=== PATIENT | female | born 1960 | race Caucasian/White ===

== ENCOUNTER 2021-05-11 22:13 | Emergency (ER) | payer OTHER, MEDICAID, SELFPAY ==
[2021-05-11 23:08] VITALS: BP 124/53; PULSE 68; RESP 18; TEMP 36.6; O2SAT 100; BMI 19.5
[2021-05-11 23:48] VITALS: BP 112/51; PULSE 65; RESP 20; O2SAT 99
[2021-05-12] VITALS (8 sets, daily range): BP systolic 87–100; BP diastolic 40–51; PULSE 55–60; RESP 12–30; O2SAT 98–100
--- NOTE | 2021-05-12 03:22 | ED.OVERDOSE ---
HPI - Overdose General Chief Complaint: Toxicology Problem Stated Complaint: TIRED NAUSEA Time Seen by Provider: 05/11/21 23:41 Source: patient Mode of arrival: Wheelchair Limitations: no limitations History of Present Illness HPI Narrative: 60-year-old woman with a history of seizure disorder, paroxysmal atrial fibrillation presents this evening after taking a 2nd dose of her nighttime medications by accident. The extra dose is 500 mg of Depakote, 100 mg of Vimpat and 1.5 mg of clonazepam. She called her neurologist who suggested that she come to the emergency room for observation and further evaluation. She has no complaints otherwise. Related Data Allergies Allergy/AdvReac Type Severity Reaction Status Date / Time No Known Drug Allergies Allergy Verified 05/11/21 23:08 Review of Systems Review of Systems Narrative: Pertinent positive and negative findings as per HPI Remainder of review of systems is otherwise unremarkable for Constitutional: Fevers, chills, weakness ENT: No sore throat, neck pain, ear pain CV: Chest pain, palpitations, Respiratory: Cough, wheeze, dyspnea GI: Nausea, vomiting, diarrhea, : Dysuria, hematuria, Patient History Social History Smoking Status: Never smoker Smoking Status: Never smoker Substance Use Type: does not use Exam Narrative Exam Narrative: General: Frail, chronically ill-appearing, somewhat sleepy but Able to give a complete and coherent history. HEENT: Moist mucous membranes, normal sclera with reactive pupils, Respiratory: Lungs are clear to auscultation, no wheezing no rales no rhonchi. Full and symmetrical air movement Cardiac: Regular rate and rhythm no murmurs no bruits Abdomen: Soft, nontender, good bowel tones, no flank pain Skin: Warm and dry, no rashes Neurologic: Grossly neurologically intact with no obvious asymmetries or abnormalities Extremities: No trauma, well perfused Psych: Cooperative, drowsy, appropriate insight and affect Initial Vital Signs Initial Vital Signs: Vital Signs Temperature 97.9 F 05/11/21 23:08 Pulse Rate 68 05/11/21 23:08 Respiratory Rate 18 05/11/21 23:08 Blood Pressure 124/53 L 05/11/21 23:08 Pulse Oximetry 100 05/11/21 23:08 Course Vital Signs Vital signs: Vital Signs - 8 hr 05/11/21 23:08 05/11/21 23:48 05/12/21 00:00 Temperature 97.9 F Pulse Rate 68 65 60 Respiratory Rate 18 20 30 H Blood Pressure 124/53 L 112/51 L 100/46 L Pulse Oximetry 100 99 99 05/12/21 00:30 05/12/21 00:32 05/12/21 01:00 Temperature Pulse Rate 58 L 56 L 59 L Respiratory Rate 19 20 19 Blood Pressure 87/40 L 93/46 L Pulse Oximetry 99 98 98 05/12/21 01:01 05/12/21 01:30 05/12/21 02:00 Temperature Pulse Rate 55 L 56 L 57 L Respiratory Rate 21 16 12 Blood Pressure 93/51 L 87/51 L 98/46 L Pulse Oximetry 99 98 100 05/12/21 02:30 Temperature Pulse Rate 59 L Respiratory Rate 23 Blood Pressure 87/40 L Pulse Oximetry 99 MDM - Overdose ECG Data Interpretation: Sinus rhythm with occasional PAC Rate of 67 QT is 384 milliseconds No acute ischemic changes MDM Narrative Medical decision making narrative: 60-year-old woman who inadvertently took a 2nd dose of all of her evening seizure medications and an additional dose of clonazepam 1.5mg. She was observed in the emergency department for 6 hours and is more alert with her blood pressure trending up. She states that she typically has chronically low blood pressure. New no acute EKG changes and no prolonged QT QTC intervals. Patient is safe for home discharge. Did suggest that she consider buying a pill dispenser kit that clearly shows which medications have been taken and which are still pending to take. There is no evidence of self-harm or intentional overdose with lucina's presentation. Discharge Plan Departure Patient Disposition: Home Clinical Impression: Accidental drug overdose Qualifiers: Encounter type: initial encounter Qualified Code(s): T50.901A - Poisoning by unspecified drugs, medicaments and biological substances, accidental (unintentional), initial encounter Activity Restrictions/Additional Instructions: Thank you for coming in today. With the extra dose of all of your evening seizure medications you are observed in the emergency department for 6 hours. Your oxygen levels mid remained reassuring. Your blood pressure did fall slightly but is beginning to come back up nicely. Your EKG does not show any arrhythmias widening of the electrical complexes. It is safe for you to go home at this time. It might be appropriate to think about putting your medications into a daily dispenser so it is obvious when you have taken them and when you have not to avoid accidentally taking 2nd doses or accidentally missing doses. I wish you the best
== END 2021-05-12 03:58 | disposition home or self-care (01) ==
PROVIDERS: Emergency Provider Emergency Medicine
DX: T42.6X1A Poisoning by other antiepileptic and sedative-hypnotic drugs, accidental (unintentional), initial encounter (principal); R03.1 Nonspecific low blood-pressure reading
CPT/HCPCS: 93005; 93010; 99283

== ENCOUNTER → 2021-07-19 16:11 | Outpatient (CLI) | payer OTHER, MEDICAID, SELFPAY ==
[2021-07-20 05:41] LABS: Valproic Acid (Depakene) Total 109 ug/mL (50-100)
[2021-07-24 14:42] LABS: Lacosamide 7.1 ug/mL (5.0-10.0)
== END ==
PROVIDERS: Referring Provider Psychiatry & Neurology Neurology; Visit Provider Psychiatry & Neurology Neurology
DX: G40.909 Epilepsy, unspecified, not intractable, without status epilepticus (principal); Z79.899 Other long term (current) drug therapy
CPT/HCPCS: 36415; 80164; 80235

== ENCOUNTER → 2022-08-26 16:23 | Outpatient (CLI) | payer OTHER, MEDICAID, SELFPAY ==
[2022-08-27 23:30] LABS: Valproic Acid (Depakene) Total 64 ug/mL (50-100)
== END ==
PROVIDERS: Referring Provider Psychiatry & Neurology Neurology; Visit Provider Psychiatry & Neurology Neurology
DX: G40.804 Other epilepsy, intractable, without status epilepticus (principal)
CPT/HCPCS: 36415; 80164

== ENCOUNTER 2023-01-03 09:03 | Emergency (ER) | payer OTHER, MEDICAID, SELFPAY ==
[2023-01-03] VITALS (23 sets, daily range): BP systolic 100–120; BP diastolic 49–77; PULSE 58–91; RESP 4–29; TEMP 36.7; O2SAT 93–100; BMI 20.3
--- NOTE | 2023-01-03 09:09 | DI.CT.S_ITS ---
PROCEDURE: CT HEAD/BRAIN WO CON INDICATIONS: change in seizure pattern TECHNIQUE: Noncontrast 4.5 mm thick angled axial sections acquired from the foramen magnum to the vertex, with coronal and sagittal reformats. For radiation dose reduction, the following was used: automated exposure control, adjustment of mA and/or kV according to patient size. COMPARISON: None. FINDINGS: Image quality: Excellent. CSF spaces: Basal cisterns are patent. No extra-axial fluid collections. The ventricles are symmetric in size and shape. Brain: No intracranial bleeds or masses. There is cerebral volume loss for age, with resultant ventricular and sulcal prominence. There are periventricular and deep white matter chronic small vessel ischemic changes. There is intracranial internal carotid artery atherosclerosis. Skull and face: Calvarium and visualized facial bones appear intact, without suspicious lesions. Sinuses: There is a mucous retention cyst or polyp in the left maxillary sinus. The mastoids are clear. IMPRESSION: 1. No acute intracranial abnormalities. 2. Cerebral volume loss and chronic microvascular ischemic changes. 3. A mucous retention cyst or polyp in the left maxillary sinus. Dictated by: Yeison Arredondo M.D. on 01/03/2023 at 10:26 Approved by: Yeison Arredondo M.D. on 01/03/2023 at 10:27
--- NOTE | 2023-01-03 09:11 | ED_ITS ---
HPI - General Adult General Chief complaint: Seizure Stated complaint: seizures 4 in a 24 hour period Time Seen by Provider: 01/03/23 09:09 History of Present Illness HPI narrative: 62-year-old female nonsmoker with history of atrial fibrillation and seizure disorder on Keppra presents with her in the chief complaint of 4 seizures in the past 24 hours. She had been in her normal state of health and has been taking her medications as directed without any changes in the dosing. She is had no recent trauma, no fevers vomiting or diarrhea. No chest pain, cough or shortness of breath. has witnessed seizures and states that they are grand mal and last approximately 1 minute with a relatively typical postictal phase in the aftermath. The most recent was just prior to her arrival, again lasting about 1 minute, she did not injure herself, did not bite her tongue but did lose control of her bladder. She did not get her morning dose of Keppra today but this is the only dose that she has missed. She had gone 7 or 8 months without a seizure until she had 1 about 1 week ago and then for seizures in the past 24 hours as noted. Related Data Allergies Allergy/AdvReac Type Severity Reaction Status Date / Time No Known Drug Allergies Allergy Verified 05/11/21 23:08 Review of Systems Review of Systems Narrative: GENERAL: Denies chills, fatigue, malaise, fever, sweats. HEENT: Denies sinus pain, ear pain, sore throat, difficulty swallowing, dizziness. RESPIRATORY: Denies dyspnea, cough, wheezing, hemoptysis, sputum. CARDIOVASCULAR: Denies chest pain, palpitations, orthopnea, edema, GASTROINTESTINAL: Denies nausea, vomiting, abdominal pain, diarrhea, constipation, melena. : Denies dysuria, frequency, incontinence, hematuria, urinary retention. MUSCULOSKELETAL: denies weakness, joint pain, or bony pain SKIN: Denies rash, skin lesions, or other NEUROLOGIC: See HPI PSYCHIATRIC: No concerning psychosocial issues. 12 point review of systems is negative except for those stated above Patient History Social History Smoking Status: Never smoker Smoking Status: Never smoker Substance Use Type: does not use Exam Narrative Exam Narrative: GENERAL: [62] year old patient appears stated age. Well-developed patient, in mild distress. GCS 14, slightly confused HEAD: Atraumatic. Normocephalic. EYES: Pupils equal round and reactive. Extraocular motions intact. No scleral icterus. No injection or drainage. ENT: Nose without bleeding, purulent drainage. Throat without erythema, tonsillar hypertrophy or exudate. Airway patent. NECK: Trachea midline. Non tender CARDIOVASCULAR: Regular rate and rhythm without murmurs, gallops, or rubs. RESPIRATORY: Clear to auscultation. Breath sounds equal bilaterally. No wheezes, rales, or rhonchi. GASTROINTESTINAL: Abdomen soft, non-tender, nondistended. Incontinent of urine EXTREMITIES: No edema or joint tenderness. BACK: Nontender without deformity or crepitance. No flank tenderness. NEURO: AOx3. SKIN: No rash or erythema of visible areas Initial Vital Signs Initial Vital Signs: Vital Signs Pulse Oximetry 93 01/03/23 09:13 Course Orders Ordered: ED Orders 01/03/23 09:09 CT head/brain wo con Stat 01/03/23 09:43 Complete Blood Count AUTO DIFF Stat Comprehensive Metabolic Panel Stat Ethanol (ETOH) Stat Lactate (Lactic Acid) Stat Levetiracetam Keppra Stat Magnesium Stat Prolactin Stat 01/03/23 10:47 Urine Drug Screen, Rapid Stat Urine Microscopic Stat Discontinued Medications Sodium Chloride (Normal Saline 0.9%) 1,000 mls @ 1,000 mls/hr IV BOLUS ONE Stop: 01/03/23 10:08 Last Infusion: 01/03/23 10:59 Dose: 500 mls/hr Documented By: Infusion: 01/03/23 10:00 Dose: 0 mls/hr Documented By: Infusion: 01/03/23 09:53 Dose: 1,000 mls/hr Documented By: Infusion: 01/03/23 09:19 Dose: 0 mls/hr Documented By: Admin: 01/03/23 09:19 Dose: 1,000 mls/hr Documented By: KAIT Levetiracetam 1,000 mg/ Sodium (Chloride) 110 mls @ 440 mls/hr IV NOW ONE Stop: 01/03/23 09:10 Last Infusion: 01/03/23 10:10 Dose: 0 mls/hr Documented By: Infusion: 01/03/23 09:52 Dose: 440 mls/hr Documented By: Infusion: 01/03/23 09:20 Dose: 0 mls/hr Documented By: Admin: 01/03/23 09:20 Dose: 440 mls/hr Documented By: RLS Consultations Consultation #1: discussed with Neurology, they have reviewed the case. Given no abnormal findings. No change in meds. OK for DC and follow up Vital Signs Vital signs: Vital Signs - 8 hr 01/03/23 09:15 01/03/23 09:13 01/03/23 09:14 Temperature 98.1 F Pulse Rate 91 H Respiratory Rate 16 Blood Pressure 119/53 L 119/53 L Pulse Oximetry 97 93 Oxygen Delivery Method Room Air 01/03/23 09:14 01/03/23 09:15 01/03/23 09:30 Temperature Pulse Rate 79 71 Respiratory Rate 15 26 H Blood Pressure Pulse Oximetry 99 99 Oxygen Delivery Method 01/03/23 09:45 01/03/23 10:00 01/03/23 10:30 Temperature Pulse Rate 69 65 71 Respiratory Rate 29 H 21 26 H Blood Pressure Pulse Oximetry 100 99 Oxygen Delivery Method 01/03/23 10:45 01/03/23 10:50 01/03/23 10:50 Temperature Pulse Rate 65 66 Respiratory Rate 23 25 H Blood Pressure 108/50 L Pulse Oximetry 100 Oxygen Delivery Method 01/03/23 11:00 01/03/23 11:00 01/03/23 11:15 Temperature Pulse Rate 67 66 Respiratory Rate 26 H 22 Blood Pressure 100/51 L Pulse Oximetry 100 100 Oxygen Delivery Method 01/03/23 11:30 01/03/23 11:30 01/03/23 11:37 Temperature Pulse Rate 66 Respiratory Rate 14 Blood Pressure 101/49 L 105/51 L Pulse Oximetry 100 Oxygen Delivery Method 01/03/23 11:37 Temperature Pulse Rate 76 Respiratory Rate 19 Blood Pressure Pulse Oximetry 100 Oxygen Delivery Method Medical Decision Making Lab Data 01/03/23 09:43 01/03/23 09:43 Labs: Lab Results 01/03/23 01/03/23 01/03/23 Range/Units 09:43 09:43 09:43 WBC 5.2 (4.5-11.0) X10^3/uL RBC 4.01 (4.0-5.2) X10^6/uL Hgb 12.4 (12.0-16.0) g/dL Hct 36.4 (36-46) % MCV 90.9 (80-100) fL MCH 31.0 (26-34) PG MCHC 34.1 (30-36) % RDW 13.0 (11.6-14.8) % Plt Count 242 (150-400) X10^3/uL Neut % (Auto) 55.2 (50-75) % Lymph % (Auto) 32.0 (25-40) % [place] % (Auto) 9.9 (3-14) % Eos % (Auto) 1.9 L (2-4) % Baso % (Auto) 1.0 (0-2) % Neut # (Auto) 2900 (1386-9013) /uL Lymph # (Auto) 1700 (7144-1185) /uL [place] # (Auto) 500 (0-900) /uL Eos # (Auto) 100 (0-450) /uL Baso # (Auto) 100 (0-100) /uL Sodium 131 L (137-145) mmol/L Potassium 4.3 (3.4-5.1) mmol/L Chloride 98 (98-107) mmol/L Carbon Dioxide 23 (22-32) mmol/L BUN 9 (7-17) mg/dL Creatinine 0.50 L (0.52-1.04) mg/dL Estimated GFR > 60 (>60) mL/min BUN/Creatinine Ratio 18.0 (6-22) Glucose 85 (80-110) mg/dL Lactate (0.7-2.1) mmol/L Calcium 9.0 (8.4-10.2) mg/dL Magnesium 1.9 (1.6-2.3) mg/dL Total Bilirubin 1.3 (0.2-1.3) mg/dL AST 37 H (14-36) IU/L ALT 21 (<35) IU/L Alkaline Phosphatase 46 (38-126) U/L Total Protein 8.1 (6.3-8.2) g/dL Albumin 4.2 (3.5-5.0) g/dL Globulin 3.9 (1.7-4.1) g/dL Albumin/Globulin Ratio 1.1 (1.0-2.8) Prolactin 53.8 H (3.0-18.6) ng/mL Urine RBC (0-5/HPF) Urine WBC (0-5/HPF) Ur Squamous Epith Cells (0-5/HPF) Urine Bacteria (None) Ur Culture Indicated? U Opiates 300ng/mL cut (Negative) Ur Oxycodone Screen (Negative) Urine Methadone Screen (Negative) Ur Barbiturates Screen (Negative) U Tricyclic Antidepress (Negative) Ur Phencyclidine Scrn (Negative) Ur Amphetamines Screen (Negative) U Methamphetamines Scrn (Negative) Ur MDMA Scrn (Ecstasy) (Negative) U Benzodiazepines Scrn (Negative) Urine Cocaine Screen (Negative) U Marijuana (THC) Screen (Negative) Ethyl Alcohol < 10 ( - 10) mg/dL 01/03/23 01/03/23 01/03/23 Range/Units 09:43 10:47 10:47 WBC (4.5-11.0) X10^3/uL RBC (4.0-5.2) X10^6/uL Hgb (12.0-16.0) g/dL Hct (36-46) % MCV (80-100) fL MCH (26-34) PG MCHC (30-36) % RDW (11.6-14.8) % Plt Count (150-400) X10^3/uL Neut % (Auto) (50-75) % Lymph % (Auto) (25-40) % [place] % (Auto) (3-14) % Eos % (Auto) (2-4) % Baso % (Auto) (0-2) % Neut # (Auto) (4472-5527) /uL Lymph # (Auto) (2806-7472) /uL [place] # (Auto) (0-900) /uL Eos # (Auto) (0-450) /uL Baso # (Auto) (0-100) /uL Sodium (137-145) mmol/L Potassium (3.4-5.1) mmol/L Chloride (98-107) mmol/L Carbon Dioxide (22-32) mmol/L BUN (7-17) mg/dL Creatinine (0.52-1.04) mg/dL Estimated GFR (>60) mL/min BUN/Creatinine Ratio (6-22) Glucose (80-110) mg/dL Lactate 2.6 H (0.7-2.1) mmol/L Calcium (8.4-10.2) mg/dL Magnesium (1.6-2.3) mg/dL Total Bilirubin (0.2-1.3) mg/dL AST (14-36) IU/L ALT (<35) IU/L Alkaline Phosphatase (38-126) U/L Total Protein (6.3-8.2) g/dL Albumin (3.5-5.0) g/dL Globulin (1.7-4.1) g/dL Albumin/Globulin Ratio (1.0-2.8) Prolactin (3.0-18.6) ng/mL Urine RBC 1-5/hpf (0-5/HPF) Urine WBC 1-5/hpf (0-5/HPF) Ur Squamous Epith Cells 1-5 /hpf (0-5/HPF) Urine Bacteria Moderate (10-30) H (None) Ur Culture Indicated? Cult not indicated U Opiates 300ng/mL cut Negative (Negative) Ur Oxycodone Screen Negative (Negative) Urine Methadone Screen Negative (Negative) Ur Barbiturates Screen Negative (Negative) U Tricyclic Antidepress Negative (Negative) Ur Phencyclidine Scrn Negative (Negative) Ur Amphetamines Screen Negative (Negative) U Methamphetamines Scrn Negative (Negative) Ur MDMA Scrn (Ecstasy) Negative (Negative) U Benzodiazepines Scrn Negative (Negative) Urine Cocaine Screen Negative (Negative) U Marijuana (THC) Screen Negative (Negative) Ethyl Alcohol ( - 10) mg/dL 01/03/23 Range/Units 12:00 WBC (4.5-11.0) X10^3/uL RBC (4.0-5.2) X10^6/uL Hgb (12.0-16.0) g/dL Hct (36-46) % MCV (80-100) fL MCH (26-34) PG MCHC (30-36) % RDW (11.6-14.8) % Plt Count (150-400) X10^3/uL Neut % (Auto) (50-75) % Lymph % (Auto) (25-40) % [place] % (Auto) (3-14) % Eos % (Auto) (2-4) % Baso % (Auto) (0-2) % Neut # (Auto) (9294-7969) /uL Lymph # (Auto) (0329-3882) /uL [place] # (Auto) (0-900) /uL Eos # (Auto) (0-450) /uL Baso # (Auto) (0-100) /uL Sodium (137-145) mmol/L Potassium (3.4-5.1) mmol/L Chloride (98-107) mmol/L Carbon Dioxide (22-32) mmol/L BUN (7-17) mg/dL Creatinine (0.52-1.04) mg/dL Estimated GFR (>60) mL/min BUN/Creatinine Ratio (6-22) Glucose (80-110) mg/dL Lactate 1.5 (0.7-2.1) mmol/L Calcium (8.4-10.2) mg/dL Magnesium (1.6-2.3) mg/dL Total Bilirubin (0.2-1.3) mg/dL AST (14-36) IU/L ALT (<35) IU/L Alkaline Phosphatase (38-126) U/L Total Protein (6.3-8.2) g/dL Albumin (3.5-5.0) g/dL Globulin (1.7-4.1) g/dL Albumin/Globulin Ratio (1.0-2.8) Prolactin (3.0-18.6) ng/mL Urine RBC (0-5/HPF) Urine WBC (0-5/HPF) Ur Squamous Epith Cells (0-5/HPF) Urine Bacteria (None) Ur Culture Indicated? U Opiates 300ng/mL cut (Negative) Ur Oxycodone Screen (Negative) Urine Methadone Screen (Negative) Ur Barbiturates Screen (Negative) U Tricyclic Antidepress (Negative) Ur Phencyclidine Scrn (Negative) Ur Amphetamines Screen (Negative) U Methamphetamines Scrn (Negative) Ur MDMA Scrn (Ecstasy) (Negative) U Benzodiazepines Scrn (Negative) Urine Cocaine Screen (Negative) U Marijuana (THC) Screen (Negative) Ethyl Alcohol ( - 10) mg/dL Urine Dip Bedside Urine Glucose Negative Bedside Urine Bilirubin - Negative Bedside Urine Ketone - Negative Urine Specific [place] 1.010 Bedside Urine Occult Blood ++ Bedside Urine pH 7.0 Bedside Urine Protein - Negative Bedside Urine Urobilinogen - Negative Bedside Urine Nitrite - Negative Bedside Urine Leukocytes +/- 15 Esterase Point of care testing: Urine Dip Bedside Urine Glucose Negative Bedside Urine Bilirubin - Negative Bedside Urine Ketone - Negative Urine Specific [place] 1.010 Bedside Urine Occult Blood ++ Bedside Urine pH 7.0 Bedside Urine Protein - Negative Bedside Urine Urobilinogen - Negative Bedside Urine Nitrite - Negative Bedside Urine Leukocytes +/- 15 Esterase MDM Narrative Medical decision making narrative: [62] year old patient presents with seizure Multiple etiologies for patient's symptoms considered including, but not limited to: [epilepsy, no epileptiform vs. electrolyte abnormality vs. other] Prior Charts reviewed in our EMR Primary Historian: patient Labs reviewed and interpreted by myself: No significant lab abnormalities requiring intervention Imaging reviewed: Head CT without abnormal finding Consultations: Discussed with on-call Neurology at , see details above Patient's symptoms improved over duration of stay with above-stated therapies. Patient has normal prodromal symptoms with return to baseline, currently asymptomatic, alert and oriented. She is been taking Keppra 500 b.i.d. as well as Depakote 250 b.i.d., no evidence of secondary cause of seizure such as intracranial hemorrhage, electrolyte abnormality or other. Her epilepsy diaz rologist recommends against any changes in medications and will follow-up with them as an outpatient Findings and discharge diagnosis discussed with patient/family followed by verbalization of understanding Return precautions discussed with patient/family whom verbalize understanding of diagnosis and plan Discharge Plan Departure Patient Disposition: Home Clinical Impression: Seizure disorder Instructions: DI for Seizure Disorder -- Adult Activity Restrictions/Additional Instructions: *You have been diagnosed with [breakthrough seizures] *What to do: *Please continue to take your regular medications as directed. *Please follow up with your primary epilepsy provider in 2-3 days, call for an appointment. Let them know you were seen in the Emergency Department and that we ask that you be seen in follow up. *Return to Emergency Department if you should have any new, worsening or concerning symptoms, such as [fever greater than 101 F, shaking chills, worsening pain, persistent vomiting or other bothersome symptoms] Referrals: Ge Gotti MD [Primary Care Provider] - Stand Alone Forms: Patient Portal/API
[2023-01-03] MEDS: SODIUM CHLORIDE 0.9% 1,000 ML 1000 ML IV (09:19)
[2023-01-03] MEDS: levETIRAcetam 1,000 MG in SODIUM CHLORIDE 0.9% 100 ML 440 MG IV (09:20)
[2023-01-03 09:55] LABS: Add Manual Diff / Slide Review NO; Basophils Absolute Auto 100 /uL (0-100); Eosinophils Absolute Auto 100 /uL (0-450); Eosinophils Percent Auto 1.9 % (2-4); Hematocrit 36.4 % (36-46); Hemoglobin 12.4 g/dL (12.0-16.0); Lymphocytes Absolute Auto 1700 /uL (1100-4500); Mean Corpuscular HGB Conc 34.1 % (30-36); Mean Corpuscular Volume 90.9 fL (80-100); Monocytes Absolute Auto 500 /uL (0-900); Monocytes Percent Auto 9.9 % (3-14); Neutrophils Absolute Auto 2900 /uL (1500-7000); Neutrophils Percent Auto 55.2 % (50-75); Platelet Count 242 X10^3/uL (150-400); Red Blood Cell Count 4.01 X10^6/uL (4.0-5.2); White Blood Cell Count 5.2 X10^3/uL (4.5-11.0)
[2023-01-03 10:04] LABS: Lactate (Lactic Acid) 2.6 mmol/L (0.7-2.1)
[2023-01-03 10:05] LABS: Ethanol (ETOH) < 10 mg/dL
[2023-01-03 10:06] LABS: Alanine Aminotransferase 21 IU/L (<35); Albumin 4.2 g/dL (3.5-5.0); Albumin Globulin Ratio 1.1 (1.0-2.8); Alkaline Phosphatase 46 U/L (38-126); Aspartate Aminotransferase 37 IU/L (14-36); Bilirubin Total 1.3 mg/dL (0.2-1.3); Blood Urea Nitrogen 9 mg/dL (7-17); Carbon Dioxide 23 mmol/L (22-32); Chloride 98 mmol/L (98-107); Estimated Glomerular Filt Rate > 60 mL/min (>60); Globulin 3.9 g/dL (1.7-4.1); Glucose 85 mg/dL (80-110); Magnesium 1.9 mg/dL (1.6-2.3); Sodium 131 mmol/L (137-145); Total Protein 8.1 g/dL (6.3-8.2)
[2023-01-03 10:07] LABS: HEMOLYSIS 84 (0-50); Potassium 4.3 mmol/L (3.4-5.1)
[2023-01-03 10:23] LABS: Prolactin 53.8 ng/mL (3.0-18.6)
--- NOTE | 2023-01-03 10:39 | PC.NURSE ---
Patient was up to use the bedside commode and gave a urine sample. She did not report dizziness, lightheadedness while standing. She was able to stand and pivot on her own.
[2023-01-03 10:59] LABS: Bacteria Urine Moderate (10-30); Culture Indicated Urine Cult Not Indicated; RBC Urine 1-5/HPF (0-5/HPF); Squamous Epithelial Cell Urine 1-5 /HPF (0-5/HPF); WBC Urine 1-5/HPF (0-5/HPF)
--- NOTE | 2023-01-03 11:00 | PC.NURSE ---
Patient was a hard stick and required an ultrasound IV inserted. 22g IV placed in patient right hand. IV bolus fluid placed at 500ml/hr which is all the iv site could flow at this time.
[2023-01-03 11:08] LABS: UR Morphine/Opiate cutoff 300 Negative (Negative); Ur Creatinine Normal (Normal); Ur Specific Gravity Normal (Normal); Urine Amphetamines Negative (Negative); Urine Barbiturates Negative (Negative); Urine Benzodiazepines Negative (Negative); Urine Cocaine Negative (Negative); Urine MDMA Negative (Negative); Urine Methadone Negative (Negative); Urine Methamphetamines Negative (Negative); Urine Oxycodone Negative (Negative); Urine Phencyclidine Negative (Negative); Urine Tetrahydrocannabinol Negative (Negative); Urine Tricyclic Antidepressant Negative (Negative); Urine pH Normal (Normal)
--- NOTE | 2023-01-03 11:10 | PC.NURSE ---
Received report from LEELEE Rodriguez. Pt resting comfortably, A&Ox4. Warm blanket provided for comfort.
[2023-01-03 11:46] LABS: Reflexed Lactate in 2 Hours Y
[2023-01-03 12:21] LABS: Lactate 2HR (Lactic Acid Rflx) 1.5 mmol/L (0.7-2.1)
--- NOTE | 2023-01-03 13:35 | PC.NURSE ---
Pt eating lunch, denies pain or any concerning symptoms.
[2023-01-06 13:35] LABS: Levetiracetam Keppra 10.7 ug/mL (10.0-40.0)
== END 2023-01-03 14:30 | disposition home or self-care (01) ==
PROVIDERS: Emergency Provider Emergency Medicine; PCP Psychiatry & Neurology Neurology
DX: G40.909 Epilepsy, unspecified, not intractable, without status epilepticus (principal)
CPT/HCPCS: 36415; 70450; 80053; 80177; 80305; 80320; 81003; 81015; 83605; 83735; 84146; 85025; 96365; 99283; 99285; J1953